=== PATIENT | female | born 1945 | race Caucasian/White ===

== ENCOUNTER 2018-12-20 09:19 | Day surgery (SDC) | payer MEDICARE, SELFPAY ==
[2018-12-20] VITALS (7 sets, daily range): BP systolic 118–147; BP diastolic 69–85; PULSE 70–89; RESP 14–19; TEMP 36.4–36.6; O2SAT 96–100; BMI 23.0
--- NOTE | 2018-12-20 | PATH_ITS ---
[facility] Accession Number: [id number] . 01 Material submitted: . hepatic flexure - POLYPS HEPATIC FLEXURE X2 . 02 Diagnosis: Hepatic Flexure, Polyps x2, Biopsies: Tubular adenoma in one of three fragments. V 12/21/2018 1336 Local . 02 Electronically signed: . Yolanda Bautista MD, Pathologist NPI- [id number] . 01 Gross description: . POLYPS HEPATIC FLEXURE X2: Received in formalin are 3 fragment(s) of lazo, soft tissue measuring 0.1 x 0.1 x 0.1 cm to 0.2 x 0.2 x 0.1 cm which is entirely submitted and submitted entirely in 1 cassette(s) /[facility] 12/20/2018 1912 Local . 02 Pathologist provided ICD-10: D12.3 . 02 CPT . 768809 Performed at: 01 [facility] [address] [facility] [place], [place], [place] [id number] MD Thomas Canela MD Phone: [phone] Performed at: 02 [facility] [address] [place], [place] [id number] MD Yolanda Bautista MD Phone: [phone]
[2018-12-20] MEDS: SODIUM CHLORIDE 0.9% 1,000 ML 42 ML IV (09:53)
--- NOTE | 2018-12-20 10:01 | PM.HP.1 ---
History of Present Illness History of Present Illness Date Patient Seen: 12/20/18 Time Patient Seen: 10:02 Chief complaint: 12415 Narrative: Screening for colorectal cancer Patient History Social History household members: friend(s) Family & Social History Social History: household members friend(s) Meds Home Medications and Allergies Allergies Allergy/AdvReac Type Severity Reaction Status Date / Time No Known Drug Allergies Allergy Verified 12/20/18 09:45 Exam Vital Signs (past 8 hours): - 12/20/18 09:34 Temperature 97.5 F L Pulse Rate 89 Respiratory Rate 16 Blood Pressure 147/85 H Pulse Oximetry 100 Oxygen Delivery Method Room Air Narrative Exam Narrative: Oropharynx free of lesions Chest clear to auscultation percussion Cardiac exam reveals no S3 or murmur Assessment & Plan Assessment & Plan narrative: Need for screening colonoscopy. Risks, benefits, alternatives have been explained.
--- NOTE | 2018-12-20 10:03 | PM.OP.ENDO ---
Operative Date/Time/Diagnoses Date of procedure: 12/20/18 Time of procedure: 10:03 Pre-op diagnosis: See indication and findings Procedure & Clinicians Study performed: Colonoscopy Same procedure as scheduled: Yes Indications: Screening. Last colonoscopy 10 years ago Surgeon: Aristeo Riggs Procedure Notes Procedure in detail: After informed consent was obtained the patient was placed in left lateral decubitus position. The video colonoscope was introduced the rectum and slowly advanced to the cecum. On slow withdrawal mucosa was carefully examined. Preparation was good. The scope was removed. The patient tolerated the procedure well. Blood loss none Complications none Sedation Total sedation time 31 minutes Versed 10 mg fentanyl 100 micro g IV titration Findings 1. Scattered pancolonic diverticulosis worse in the sigmoid 2. Two 3-4 mm polyps in the hepatic flexure Jumbo biopsy removed completely 3. Otherwise negative colonoscopy to cecum We will be in touch regarding pathology on the biopsies but if adenomatous she will need follow-up colonoscopy in 5 years. If not when she turns 81 ear 82
[2018-12-20] MEDS: ONDANSETRON 4 MG/2 ML INJ IV (10:10)
[2018-12-20] MEDS: MIDAZOLAM 5 MG/5 ML VIAL IV (10:55)
[2018-12-20] MEDS: fentaNYL 250 MCG/5 ML INJ IV (10:55)
--- NOTE | 2018-12-20 11:03 | SUR.OPER ---
EXTERNAL ABDOMINAL PRESSURE..TORTUOUS COLON
== END 2018-12-20 12:02 | disposition home or self-care (01) ==
PROVIDERS: Visit Provider Internal Medicine Gastroenterology
PROC: 0DJD8ZZ Inspection of Lower Intestinal Tract, Via Natural or Artificial Opening Endoscopic (ICD-10-PCS; CPT 45378; principal; 2018-12-20 10:30)
DX: Z12.11 Encounter for screening for malignant neoplasm of colon (principal); K57.30 Diverticulosis of large intestine without perforation or abscess without bleeding; D12.3 Benign neoplasm of transverse colon
CPT/HCPCS: 45380; J2250; J2405; J3010

== ENCOUNTER → 2019-01-05 15:13 | Outpatient (CLI) | payer MEDICARE, SELFPAY ==
--- NOTE | 2019-01-05 | DI.RAD.S_ITS ---
PROCEDURE: XR RIBS RT 2V INDICATIONS: Back pain, rib pain. TECHNIQUE: 2 views of the right ribs were acquired. COMPARISON: None. FINDINGS: Surgical changes and devices: None. Bones and chest wall: No fractures or dislocations. No suspicious bony lesions. Overlying soft tissues appear unremarkable. Lungs and pleura: The visualized lung appears clear. No pleural effusions or pneumothorax are visible. IMPRESSION: Source of pain is not seen, no rib fracture found. Dictated by: Regino Mantilla M.D. on 01/05/2019 at 17:16 Approved by: Regino Mantilla M.D. on 01/05/2019 at 17:16
--- NOTE | 2019-01-05 | DI.RAD.S_ITS ---
PROCEDURE: XR CERVICAL SPINE 2V OR 3V INDICATIONS: NECK PAIN TECHNIQUE: 3 view(s) of the cervical spine were acquired. COMPARISON: None. FINDINGS: Bones: No fractures or dislocations to the C7 level. The lateral masses of C1 appear intact on the odontoid view. No suspicious bony lesions. There is degenerative disc disease, moderate at C3-C4 and C4-C5, and mild at C5-C6 and C6-C7. Mild degenerative facet arthropathy scattered in cervical spine. Soft tissues: No prevertebral soft tissue swelling. IMPRESSION: Degenerative disc and facet disease in the cervical spine. Dictated by: He Darden M.D. on 01/05/2019 at 18:05 Approved by: He Darden M.D. on 01/05/2019 at 18:07
--- NOTE | 2019-01-05 | DI.RAD.S_ITS ---
PROCEDURE: XR THORACIC SPINE 2V INDICATIONS: NECK PAIN TECHNIQUE: 3 views of the thoracic spine were acquired. COMPARISON: None. FINDINGS: Bones: No fractures or dislocations. No suspicious bony lesions. There is mild/moderate degenerative disc disease at T6-T7, T7-T8, T8-T9, T9-T10, T10-T11 and T11-T12. 12 pairs of ribs are noted, and appear intact where visualized. Soft tissues: No paravertebral stripe thickening. IMPRESSION: [id number] degenerative disc disease. Dictated by: He Darden M.D. on 01/05/2019 at 18:07 Approved by: He Darden M.D. on 01/05/2019 at 18:09
== END ==
PROVIDERS: PCP Internal Medicine; Visit Provider Internal Medicine
DX: M54.9 Dorsalgia, unspecified (principal); R07.81 Pleurodynia; M50.31 Other cervical disc degeneration, high cervical region; M47.812 Spondylosis without myelopathy or radiculopathy, cervical region; M51.34 Other intervertebral disc degeneration, thoracic region
CPT/HCPCS: 71100; 72040; 72072

== ENCOUNTER → 2019-09-19 13:06 | Outpatient (CLI) | payer MEDICARE, SELFPAY | PROVIDERS: PCP Internal Medicine; Referring Provider Internal Medicine; Visit Provider Internal Medicine | DX: M85.851 Other specified disorders of bone density and structure, right thigh (principal); Z78.0 Asymptomatic menopausal state; M48.54XA Collapsed vertebra, not elsewhere classified, thoracic region, initial encounter for fracture; Z87.891 Personal history of nicotine dependence | CPT/HCPCS: 77080 ==

== ENCOUNTER → 2022-01-06 11:01 | Outpatient (CLI) | payer MEDICARE, SELFPAY ==
--- NOTE | 2022-01-06 | DI.RAD.S_ITS ---
PROCEDURE: FL SHOULDER INJECTION MR/CT LT INDICATIONS: Impingement syndrome of left shoulder COMPARISON: None. TECHNIQUE: The indications, alternatives, benefits, risks, and complications of the procedure were explained to the patient. Written informed consent was obtained and placed in the chart. The shoulder was examined fluoroscopically and a site for needle placement chosen for entry into the glenohumeral joint from an anterior approach. The skin was prepped and draped in a sterile fashion, and 1% lidocaine infiltrated from skin down to joint capsule. A spinal needle was inserted into the glenohumeral joint, and a small amount of iodinated contrast media injected to confirm intra-articular placement of the needle tip. This was followed by approximately 12 mL dilute solution of a gadolinium containing MR contrast agent. The needle was removed and a dressing was applied. The patient was given postprocedural instructions and sent to the MR suite for MR imaging. FINDINGS: A single fluoroscopic spot image demonstrates intra-articular location of injected iodinated contrast. IMPRESSION: Successful fluoroscopically guided administration of dilute Gadolinium solution into the shoulder joint for MR arthrogram. Dictated by: Jeremiah Woods M.D. on 01/06/2022 at 15:25 Approved by: Jeremiah Woods M.D. on 01/06/2022 at 15:25
--- NOTE | 2022-01-06 | DI.MRI.S_ITS ---
PROCEDURE: MR SHOULDER LT W CON INDICATIONS: Impingement syndrome of left shoulder TECHNIQUE: After the administration of 12 mL of dilute intra-articular Gadolinium contrast, oblique coronal T1 and T2 spin echo with fat saturation, oblique sagittal T1 spin echo with and without fat saturation, oblique sagittal T2 fast spin echo with fat saturation, axial T1 spin echo with fat saturation through the shoulder. COMPARISON: None. FINDINGS: Image quality: Excellent. Rotator cuff: Low-grade articular and bursal surface partial thickness tear involving distal supraspinatus at its insertion on the humeral head is seen extending to musculotendinous junction. Distal infraspinatus tendinosis is noted. Distal subscapularis tendon is intact. No full-thickness rotator cuff tendon rupture. Moderate supraspinatus muscle atrophy on sagittal images. Bones and bursae: No bone marrow contusions or fractures. Moderate acromioclavicular joint and glenohumeral joint osteoarthritic changes are seen with joint space narrowing, subchondral sclerosis and downward osteophyte formation. Capsule and soft tissues: Signal abnormality, contour irregularity and contrast extension in superior anterior labrum at 12 to 2 o'clock position is seen. The glenohumeral ligaments appear intact. The long head of the biceps tendon demonstrates normal location and morphology. The rotator interval appears normal, without fibrosis. The coracohumeral ligament is of normal thickness. No intra-articular bodies. IMPRESSION: 1. Moderate acromioclavicular joint and glenohumeral joint osteoarthritis. No fracture or dislocation. No gross intra-articular loose bodies. 2. Low-grade articular and bursal surface partial thickness tear involving distal supraspinatus extending to musculotendinous junction. No full-thickness rotator cuff tendon rupture. Moderate supraspinatus muscle atrophy. 3. Suggestion of superior anterior labral tear at 12 to 2 o'clock position. Dictated by: Jeremiah Woods M.D. on 01/06/2022 at 14:21 Approved by: Jeremiah Woods M.D. on 01/06/2022 at 14:28
== END ==
PROVIDERS: PCP Internal Medicine; Referring Provider Orthopaedic Surgery; Visit Provider Orthopaedic Surgery
DX: M75.42 Impingement syndrome of left shoulder (principal); M75.02 Adhesive capsulitis of left shoulder; M19.012 Primary osteoarthritis, left shoulder; M75.112 Incomplete rotator cuff tear or rupture of left shoulder, not specified as traumatic
CPT/HCPCS: 23350; 73222

== ENCOUNTER → 2022-03-04 14:19 | Outpatient (CLI) | payer MEDICARE, SELFPAY ==
[2022-03-04 15:18] LABS: Hemoglobin 14.5 g/dL (12.0-16.0); Mean Corpuscular HGB Conc 34.4 % (30-36); Mean Corpuscular Hemoglobin 34.4 PG (26-34); Mean Corpuscular Volume 99.8 fL (80-100); Platelet Count 227 X10^3/uL (150-400); Red Blood Cell Count 4.21 X10^6/uL (4.0-5.2); Red Cell Distribution Width 13.2 % (11.6-14.8); White Blood Cell Count 5.9 X10^3/uL (4.5-11.0)
[2022-03-04 15:48] LABS: Alanine Aminotransferase 19 IU/L (<35); Albumin 4.6 g/dL (3.5-5.0); Albumin Globulin Ratio 1.4 (1.0-2.8); Alkaline Phosphatase 67 U/L (38-126); Aspartate Aminotransferase 34 IU/L (14-36); BUN Creatinine Ratio 33.9 (6-22); Bilirubin Total 0.5 mg/dL (0.2-1.3); Blood Urea Nitrogen 19 mg/dL (7-17); Calcium 10.2 mg/dL (8.4-10.2); Carbon Dioxide 31 mmol/L (22-32); Chloride 96 mmol/L (98-107); Cholesterol 272 mg/dL (140-199); Estimated Glomerular Filt Rate > 60 mL/min (>60); Globulin 3.4 g/dL (1.7-4.1); Glucose 93 mg/dL (80-110); HEMOLYSIS < 15 (0-50); Sodium 137 mmol/L (137-145); Triglycerides 84 mg/dL (35-150)
[2022-03-04 16:07] LABS: HDL Cholesterol 178 mg/dL (40-60); LDL Cholesterol Calculated 77 mg/dL (<100)
[2022-03-04 16:19] LABS: TSH w/ Reflex to FT4 0.65 uIU/mL (0.47-4.68)
== END ==
PROVIDERS: PCP Internal Medicine; Referring Provider Internal Medicine; Visit Provider Internal Medicine
DX: I10 Essential (primary) hypertension (principal); E78.2 Mixed hyperlipidemia
CPT/HCPCS: 36415; 80053; 80061; 84443; 85027

== ENCOUNTER → 2022-08-09 15:16 | Outpatient (CLI) | payer MEDICARE, SELFPAY | PROVIDERS: PCP Internal Medicine; Visit Provider Nurse Practitioner Family | DX: S90.829A Blister (nonthermal), unspecified foot, initial encounter (principal); S90.821A Blister (nonthermal), right foot, initial encounter | CPT/HCPCS: 87070; 87075; 87205; 87252 ==

== ENCOUNTER → 2022-09-06 14:34 | Outpatient (CLI) | payer MEDICARE, SELFPAY ==
--- NOTE | 2022-09-06 14:48 | DI.DEXA.S_ITS ---
Bone Density Report Name: VALENTE CARRASCO I Age: 77 Sex: Female Ethnicity: White Date of : 1945 Indication: osteopenia; Referring Provider: CLARIBEL HOWARD Study: Bone densitometry was performed. Exam Date: September 06, 2022 Accession number: [id number] Bone Density: Region BMD T-score Z-score Classification AP Spine(L1-L4) 0.973 -0.7 1.8 Normal Femoral Neck (Left) 0.588 -2.3 -0.2 Osteopenia Total Hip (Left) 0.727 -1.8 0.1 Osteopenia Femoral Neck (Right) 0.585 -2.4 -0.2 Osteopenia Total Hip (Right) 0.668 -2.2 -0.4 Osteopenia Total Hip Mean 0.697 -2.0 -0.2 Osteopenia World Health Organization criteria for BMD impression classify patients as: Normal (T-score at or above -1.0), Osteopenia (T-score between -1.0 and -2.5), or Osteoporosis (T-score at or below -2.5). 10-year Fracture Risk(1): Major Osteoporotic Fracture 15% Hip Fracture 4.7% Reported Risk Factors: [place] (), Neck BMD=0.585, BMI=21.8 (1) FRAX(R) Version 3.08. Fracture probability calculated for an untreated patient. Fracture probability may be lower if the patient has received treatment. Previous Exams: -- Region Exam Age BMD T-score BMD Change BMD Change Date g/cm2 vs Baseline vs Previous -- AP Spine (L1-L4) 09/06/2022 77 0.973 -0.7 0.017 (1.8%)# 0.017 (1.8%)# 09/19/2019 74 0.956 -0.8 Total Hip(Left) 09/06/2022 77 0.727 -1.8 -0.033 (-4.3%)# -0.033 (-4.3%)# 09/19/2019 74 0.760 -1.5 Total Hip(Right) 09/06/2022 77 0.668 -2.2 -0.022 (-3.3%)# -0.022 (-3.3%)# 09/19/2019 74 0.690 -2.1 -- *Denotes significance at 95% confidence level, LSC for AP Spine = 0.022 g/cm2, LSC for Total Hip = 0.027 g/cm2 # Denotes dissimilar scan types or analysis methods Impression: The patient has low bone mass, based on the Right Femoral Neck T-score. The patient has an estimated ten-year risk of hip fracture of 4.7% and an estimated ten-year risk of major fracture of 15%, based on the WHO FRAX algorithm. No significant bone loss was observed. Discussion: BONE DENSITY IS LOW AT ONE OR MORE SKELETAL SITES. THE PATIENT'S BMD AND CLINICAL RISK FACTORS CONTRIBUTE TO THIS PATIENT'S INCREASED RISK OF FRACTURE. This patient's lowest T-score is low at one or more skeletal sites. It meets the World Health Organization's (WHO) criteria for ?low bone mass? (T-score between -1.0 and -2.5). The patient's 10-year risk of hip fracture as calculated by FRAX exceeds the threshold where pharmacological therapy is recommended by the National Osteoporosis Foundation (NOF). However, all treatment decisions require clinical judgment and consideration of individual patient factors, including patient preferences, comorbidities, previous drug use, risk factors not captured in the FRAX model (e.g., frailty, falls, vitamin D deficiency, increased bone turnover, interval significant decline in bone density) and possible under or overestimation of fracture risk by FRAX. The patient should follow a healthful lifestyle (good nutrition with adequate calcium and vitamin D, and appropriate weight-bearing exercise). Follow-Up: Consider a repeat BMD and Vertebral Fracture Assessment (VFA) exam in 2 years or sooner if medically necessary, to reassess this patient's status. Reported by: UGO UNDERWOOD M.D. on 09/06/2022 2:55:00 PM.
== END ==
PROVIDERS: PCP Internal Medicine; Referring Provider Internal Medicine; Visit Provider Internal Medicine
DX: Z78.0 Asymptomatic menopausal state (principal); M85.851 Other specified disorders of bone density and structure, right thigh
CPT/HCPCS: 77080

== ENCOUNTER → 2022-11-09 12:54 | Outpatient (CLI) | payer MEDICARE, SELFPAY ==
--- NOTE | 2022-11-09 | DI.MG.S_ITS ---
BILATERAL DIGITAL SCREENING MAMMOGRAM 3D/2D WITH CAD: 11/09/2022 CLINICAL: Routine screening. Comparison is made to exams dated: 11/04/2021 mammogram, 10/13/2020 mammogram, and 09/25/2019 mammogram - outside location. Both breasts are heterogeneously dense, which may obscure small masses (category c / 51-75% glandular tissue). Current study was also evaluated with a Computer Aided Detection (CAD) system. No significant masses, calcifications, or other findings are seen in either breast. There has been no significant interval change. IMPRESSION: NEGATIVE There is no mammographic evidence of malignancy. A 1 year screening mammogram is recommended. Based on the Tyrer Cuzick model (a risk assessment model) the patient's lifetime risk is 3.6% and her 10 year risk is 0.0%. According to the ACR, ACS, and NCCN guidelines, an annual breast MRI exam along with mammogram is recommended if the patient's lifetime risk is 20% or greater. This exam was interpreted at Station ID: [id number]. NOTE: For mammograms, a report in lay terms will be sent to the patient. Approximately 15% of breast malignancies will not be visualized mammographically. In the management of a palpable breast mass, a negative mammogram must not discourage biopsy of a clinically suspicious lesion. Electronically Signed By: Karl macedo/shannan:11/09/2022 14:37:33 letter sent: Normal Exam ACR BI-RADS Category 1: Negative 3341F
== END ==
PROVIDERS: PCP Internal Medicine; Referring Provider Internal Medicine; Visit Provider Internal Medicine
DX: Z12.31 Encounter for screening mammogram for malignant neoplasm of breast (principal)
CPT/HCPCS: 77063; 77067

== ENCOUNTER 2023-01-28 15:32 | Emergency (ER) | payer MEDICARE, SELFPAY ==
[2023-01-28 16:02] VITALS: BP 176/94; PULSE 98; RESP 18; TEMP 36.7; O2SAT 98; BMI 21.7
--- NOTE | 2023-01-28 16:06 | DI.US.S_ITS ---
PROCEDURE: US PERIPH VENOUS LOW EXTREM LT INDICATIONS: PROMINENT VEINS TECHNIQUE: Real-time imaging, as well as color and pulse Doppler interrogation, were performed of the lower extremity deep veins from the inguinal ligament to the popliteal fossa, with documentation of the visualized calf veins. COMPARISON: None. FINDINGS: The common femoral, femoral, popliteal, and the visualized calf veins are normally compressible, and free of intraluminal thrombus. Color and pulse Doppler demonstrate normal phasic intraluminal flow. There is normal augmentation response to distal compression maneuver. Saphenofemoral junction is patent. IMPRESSION: No left lower extremity DVT. Dictated by: Karl Tong M.D. on 01/28/2023 at 17:04 Approved by: Karl Tong M.D. on 01/28/2023 at 17:05
--- NOTE | 2023-01-28 18:07 | PC.NURSE ---
pt states that she has been feeling some pain in her left calf. she is very active and healthy and takes no medications. pt decided to come to the emergency dept for evaluation of a blood clot due to family hx. pt reports that she has been experiecing a 2/10 pain and has been able to bear weight on affected extremity. pt denies any other sx. no sob, no cp, no swelling noted on left calf. pt a&ox4.
--- NOTE | 2023-01-28 18:10 | ED.EXTPRO ---
HPI - Extremity Problem General Chief complaint: Extremity Problem,Nontraumatic Stated complaint: sent by md, possible blood clot Time Seen by Provider: 01/28/23 18:01 Source: patient Mode of arrival: Ambulatory History of Present Illness HPI Narrative: Patient is a 77-year-old female who started to have pain in her left heel that has now progressed up the back of her leg. This has been going on for the past several days. She contacted her primary doctor's office this morning who thought that she should come to the emergency department for evaluation of a blood clot. She was not actually evaluated by her primary doctor. She is not on blood thinners. She is no personal history of blood clot but apparently has a family history of clotting. She denies any trauma. No chest pain or shortness of breath. Related Data Previous Rx's Medication Instructions Recorded amlodipine 5 mg tablet 7.5 mg (1.5 x 5 mg) PO DAILY #135 03/04/22 tabs rosuvastatin 10 mg tablet 10 mg PO DAILY #90 tabs 03/04/22 triamterene 37.5 1 cap PO DAILY blood pressure #90 03/04/22 mg-hydrochlorothiazide 25 mg caps capsule Allergies Allergy/AdvReac Type Severity Reaction Status Date / Time No Known Drug Allergies Allergy Verified 01/28/23 16:02 Review of Systems Constitutional Constitutional: Reports system reviewed and no additional complaints, except as documented Musculoskeletal Musculoskeletal: Reports system reviewed and no additional complaints, except as documented Integumentary/Breasts Skin/Breast: Reports system reviewed and no additional complaints, except as documented Hematologic/Lymphatic On Anticoagulants: No Patient History Medical History Blistering rash BPPV (benign paroxysmal positional vertigo) Primary osteoarthritis involving multiple joints Mixed hyperlipidemia Essential hypertension Raynauds disease (~1970) Trigeminal neuropathy Osteopenia Fractures Mumps Measles Chicken pox Painful menstrual periods Endometriosis Hemorrhoid (~1963) Colon polyps (~2019) Surgical History History of surgery Anesthesia Family History Father History of heart attack Mother Pulmonary embolism Grandfather History of heart attack Social History household members: friend(s) Smoking Status: Former smoker Smoking Status: Former smoker Exam Initial Vital Signs Initial Vital Signs: Vital Signs Temperature 98.0 F 01/28/23 16:02 Pulse Rate 98 H 01/28/23 16:02 Respiratory Rate 18 01/28/23 16:02 Blood Pressure 176/94 H 01/28/23 16:02 Pulse Oximetry 98 01/28/23 16:02 Oxygen Delivery Method Room Air 01/28/23 16:02 Skin General: no rashes or lesions noted Neuro Sensory Exam: no sensory deficits noted Extrem General: normal to inspection, capillary refill normal and no joint enlargement Course Orders Ordered: ED Orders 01/28/23 16:06 US periph venous low extrem lt Stat Vital Signs Vital signs: Vital Signs - 8 hr 01/28/23 18:15 Temperature 98 F Pulse Rate 79 Respiratory Rate 20 Blood Pressure 184/90 H Pulse Oximetry 99 Oxygen Delivery Method Room Air MDM - Extremity (Nontraumatic) Imaging Data US - DVT: Radiologist's Impression: PROCEDURE: US PERIPH VENOUS LOW EXTREM LT INDICATIONS: PROMINENT VEINS TECHNIQUE: Real-time imaging, as well as color and pulse Doppler interrogation, were performed of the lower extremity deep veins from the inguinal ligament to the popliteal fossa, with documentation of the visualized calf veins. COMPARISON: None. FINDINGS: The common femoral, femoral, popliteal, and the visualized calf veins are normally compressible, and free of intraluminal thrombus. Color and pulse Doppler demonstrate normal phasic intraluminal flow. There is normal augmentation response to distal compression maneuver. Saphenofemoral junction is patent. IMPRESSION: No left lower extremity DVT. [facility] Narrative Medical decision making narrative: CT scan shows no signs of a DVT. She is no signs of infection. Neurovascularly intact. No trauma. No indication for x-rays. Patient was informed of the negative ultrasound result and she will contact your primary doctor for further evaluation. Discharge Plan Departure Patient Disposition: Home Clinical Impression: Left leg pain, Blistering eruption Activity Restrictions/Additional Instructions: The ultrasound today does not show any signs of a DVT. Recommend that you contact your primary doctor on Tuesday for follow-up. Return to the emergency department for new symptoms. Prescriptions: No Action rosuvastatin 10 mg tablet 10 mg PO DAILY Qty: 90 3RF amlodipine 5 mg tablet 7.5 mg PO DAILY Qty: 135 3RF triamterene-hydrochlorothiazid 37.5-25 mg capsule 1 cap PO DAILY Qty: 90 3RF Referrals: Ru Alvarado MD [Primary Care Provider] - Stand Alone Forms: Patient Portal/API
[2023-01-28 18:15] VITALS: BP 184/90; PULSE 79; RESP 20; TEMP 36.6; O2SAT 99
== END 2023-01-28 18:12 | disposition home or self-care (01) ==
PROVIDERS: Emergency Provider Emergency Medicine; PCP Internal Medicine
DX: M79.662 Pain in left lower leg (principal); T14.8XXA Other injury of unspecified body region, initial encounter; X58.XXXA Exposure to other specified factors, initial encounter
CPT/HCPCS: 93971; 99281; 99282

== ENCOUNTER → 2023-03-07 14:46 | Outpatient (CLI) | payer MEDICARE, SELFPAY ==
[2023-03-07 15:42] LABS: Aspartate Aminotransferase 44 IU/L (14-36); Blood Urea Nitrogen 18 mg/dL (7-17); Calcium 9.8 mg/dL (8.4-10.2); Carbon Dioxide 30 mmol/L (22-32); Chloride 99 mmol/L (98-107); Cholesterol 253 mg/dL (140-199); Estimated Glomerular Filt Rate > 60 mL/min (>60); Glucose 98 mg/dL (80-110); HEMOLYSIS < 15 (0-50); Potassium 3.5 mmol/L (3.4-5.1); Sodium 136 mmol/L (137-145); Triglycerides 117 mg/dL (35-150)
[2023-03-07 15:58] LABS: HDL Cholesterol 150 mg/dL (40-60); LDL Cholesterol Calculated 80 mg/dL (<100)
== END ==
PROVIDERS: PCP Internal Medicine; Referring Provider Internal Medicine; Visit Provider Internal Medicine
DX: E78.2 Mixed hyperlipidemia (principal); I10 Essential (primary) hypertension
CPT/HCPCS: 36415; 80048; 80061; 84450

== ENCOUNTER → 2023-11-14 14:21 | Outpatient (CLI) | payer MEDICARE, SELFPAY ==
--- NOTE | 2023-11-14 14:22 | DI.MG.S_ITS ---
BILATERAL DIGITAL SCREENING MAMMOGRAM 3D/2D WITH CAD: 11/14/2023 CLINICAL: Routine screening. Comparison is made to exams dated: 11/09/2022 mammogram - [facility], 11/04/2021 mammogram, and 10/13/2020 mammogram - outside location. Both breasts are extremely dense, which lowers the sensitivity of mammography (category d />75% glandular tissue). Current study was also evaluated with a Computer Aided Detection (CAD) system. No significant masses, calcifications, or other findings are seen in either breast. There has been no significant interval change. IMPRESSION: NEGATIVE There is no mammographic evidence of malignancy. A 1 year screening mammogram is recommended. Based on the Tyrer Cuzick model (a risk assessment model) the patient's lifetime risk is 4.9% and her 10 year risk is 0.0%. According to the ACR, ACS, and NCCN guidelines, an annual breast MRI exam along with mammogram is recommended if the patient's lifetime risk is 20% or greater. This exam was interpreted at Station ID: [id number]. NOTE: For mammograms, a report in lay terms will be sent to the patient. Approximately 15% of breast malignancies will not be visualized mammographically. In the management of a palpable breast mass, a negative mammogram must not discourage biopsy of a clinically suspicious lesion. Electronically Signed By: Shadi arauz/shannan:11/14/2023 16:05:24 letter sent: Normal Exam ACR BI-RADS Category 1: Negative [id number]
== END ==
LOC: MAMMO 14:22
PROVIDERS: PCP Internal Medicine; Referring Provider Internal Medicine; Visit Provider Internal Medicine
DX: Z12.31 Encounter for screening mammogram for malignant neoplasm of breast (principal)
CPT/HCPCS: 77063; 77067

== ENCOUNTER → 2024-02-14 14:57 | Outpatient (CLI) | payer MEDICARE, SELFPAY ==
--- NOTE | 2024-02-14 14:58 | DI.MRI.S_ITS ---
PROCEDURE: MR LUMBAR SPINE WO CON INDICATIONS: Spondylolisthesis TECHNIQUE: Noncontrast sagittal T1 spin echo and T2 fast echo, sagittal STIR, and T2 fast spin echo through the lumbar spine. In cases with scoliosis, additional coronal T2 fast spin echo may be performed. COMPARISON: None. FINDINGS: Image quality: Excellent Mild retrolisthesis of L2 on L3. Grade 1 anterolisthesis of L5 on S1, with bilateral pars defect. Vertebral body height of the lumbar spine are well maintained. Multiple small Schmorl's node of the lumbar spine. Marrow signal of the lumbar spine is unremarkable. Multilevel disc bulge and disc desiccation The conus terminates at the level of T12-L1, and is unremarkable. Right neural foraminal stenosis: Moderate at L1-2, and L2-3, mild at L3-4, moderate at L4-5 and L5-S1. Left neural foraminal stenosis: Mild at L2-3, moderate at L3-4, mild at L4-5, and moderate at L5-S1. Axial images: T12-L1: Mild disc bulge. No central canal stenosis. L1-2: Disc bulge. Mild bilateral facet arthropathy. No central canal stenosis. L2-3: Disc bulge. Mild bilateral facet arthropathy. Mild central canal stenosis. L3-4: Mild bilateral facet arthropathy. Disc bulge. No central canal stenosis. L4-5: Disc bulge. Mild bilateral facet arthropathy. Patient is likely status post right laminotomy. No central canal stenosis. L5-S1: Mild bilateral facet arthropathy. Posterior disc uncovering. No central canal stenosis. Visualized sacrum is intact. No abdominal aortic aneurysm. IMPRESSION: 1. Multilevel degenerative changes of the lumbar spine, most pronounced at L5-S1, where there is moderate bilateral neural foraminal stenosis. 2. Mild central canal stenosis at L2-3. Dictated by: Katerin Everett M.D. on 02/14/2024 at 17:30 Approved by: Katerin Everett M.D. on 02/14/2024 at 17:39
== END ==
PROVIDERS: PCP Internal Medicine; Referring Provider Physical Medicine & Rehabilitation; Visit Provider Physical Medicine & Rehabilitation
DX: M43.16 Spondylolisthesis, lumbar region (principal); M47.816 Spondylosis without myelopathy or radiculopathy, lumbar region; M47.817 Spondylosis without myelopathy or radiculopathy, lumbosacral region; M51.369 Other intervertebral disc degeneration, lumbar region without mention of lumbar back pain or lower extremity pain; M48.061 Spinal stenosis, lumbar region without neurogenic claudication; M48.07 Spinal stenosis, lumbosacral region
CPT/HCPCS: 72148

== ENCOUNTER → 2024-03-08 11:19 | Outpatient (CLI) | payer MEDICARE, SELFPAY ==
[2024-03-08 12:58] LABS: Aspartate Aminotransferase 51 IU/L (14-36); BUN Creatinine Ratio 31.5 (6-22); Blood Urea Nitrogen 23 mg/dL (7-17); Calcium 9.9 mg/dL (8.4-10.2); Carbon Dioxide 29 mmol/L (22-32); Chloride 98 mmol/L (98-107); Cholesterol 282 mg/dL (140-199); Estimated Glomerular Filt Rate > 60 mL/min (>60); Glucose 96 mg/dL (80-110); HEMOLYSIS < 15 (0-50); Potassium 3.6 mmol/L (3.4-5.1); Sodium 136 mmol/L (137-145); Triglycerides 59 mg/dL (35-150)
[2024-03-08 13:16] LABS: HDL Cholesterol 212 mg/dL (40-60); LDL Cholesterol Calculated 58 mg/dL (<100)
== END ==
PROVIDERS: PCP Internal Medicine; Referring Provider Internal Medicine; Visit Provider Internal Medicine
DX: I10 Essential (primary) hypertension (principal); E78.2 Mixed hyperlipidemia
CPT/HCPCS: 36415; 80048; 80061; 84450

== ENCOUNTER 2024-05-23 11:11 | Day surgery (SDC) | payer MEDICARE, SELFPAY ==
--- NOTE | 2024-05-23 | PATH_ITS ---
[facility] Accession Number: [id number] No. of containers..01 Tissue . 01 Material submitted: . colon - COLON POLYP @ 20 . 01 Diagnosis: COLON POLYP AT 20 CM: Colonic mucosa with focal mucosal hyperplasia. Negative for dysplasia or malignancy. [facility] 05/25/2024 1044 Local . 01 Electronically signed: . Christopher Castro MD, PhD, Pathologist NPI- [id number] . 01 Gross description: . Received in formalin with two patient identifiers and 1. Colon polyp at 20, are two lazo soft tissue fragments, 0.3-0.4 cm in greatest dimension, submitted in A1. ([id number]) /MRV 05/24/2024 1823 Local . 01 Pathologist provided ICD-10: K63.5 . 01 CPT . 449557 Specimen Comment: A courtesy copy of this report has been sent to [phone] Performed at: 01 [facility] [address], [place], [place] [id number] MD Thomas Canela MD Phone: [phone]
[2024-05-23 11:37] VITALS: BP 143/76; PULSE 100; RESP 18; TEMP 36.7; O2SAT 100
[2024-05-23] MEDS: LACTATED RINGERS 1,000 ML 42 ML IV (11:43)
--- NOTE | 2024-05-23 12:37 | PM.PREOP ---
Pre-operative Note Interval Note History & Physical reviewed/Exam performed by Physician: Yes Changes to H&P: No ASA Class (for procedural sedation): II
--- NOTE | 2024-05-23 12:38 | PM.OP.COLON ---
Operative Date/Time/Diagnoses Date of procedure: 05/23/24 Pre-op diagnosis: See indication and findings Procedure & Clinicians Study performed: Colonoscopy Same procedure as scheduled: Yes Indications: History of colon polyps Surgeon: Aristeo Riggs Procedure Notes Procedure in detail: After informed consent was obtained the patient was placed in left lateral decubitus position. The video colonoscope was introduced the rectum slowly advanced but we were unable to reach the cecum due to excessive tortuosity. Full extent of the colonoscopy none known but was probably hepatic flexure.. Preparation was good. On slow withdrawal mucosa was carefully examined. The scope was removed. The patient tolerated procedure well. Blood loss none Complications none Sedation mac Findings One. Three 4-5 mm polyps at 40 cm all Jumbo biopsy removed completely 2. Otherwise negative colonoscopy to approximately the hepatic flexure When we get back her biopsy results we will discuss appropriate follow-up which will probably not include colonoscopy
[2024-05-23 13:10] VITALS: BP 131/72; PULSE 75; RESP 18; TEMP 36.2; O2SAT 98
[2024-05-23 13:26] VITALS: BP 145/77; PULSE 76; RESP 18; TEMP 36.3; O2SAT 98
--- NOTE | 2024-06-13 08:24 | PM.HP.IH.1 ---
History of Present Illness History of Present Illness Date Patient Seen: 06/13/24 Chief complaint: [facility] Medical History (Updated 03/08/24 @ 11:08 by Ru Alvarado MD) Chronic low back pain History of colonic polyps BPPV (benign paroxysmal positional vertigo) Primary osteoarthritis involving multiple joints Mixed hyperlipidemia Essential hypertension Raynauds disease (~1969) Trigeminal neuropathy Osteopenia Fractures Mumps Measles Chicken pox Painful menstrual periods Endometriosis Hemorrhoid (~1962) Surgical History History of surgery Anesthesia Family History Father History of heart attack Mother Pulmonary embolism Grandfather History of heart attack Social History details: Lives alone, no children, retired [employer] household members: friend(s) Smoking Status: Former smoker alcohol intake: current Meds Home Medications and Allergies Home Medications Medication Instructions Recorded Confirmed Type amlodipine 5 mg tablet 7.5 mg (1.5 x 5 mg) PO DAILY #135 03/08/24 05/23/24 Rx tabs rosuvastatin 10 mg tablet 10 mg PO DAILY #90 tabs 03/08/24 05/23/24 Rx triamterene 37.5 1 cap PO DAILY blood pressure #90 03/08/24 05/23/24 Rx mg-hydrochlorothiazide 25 mg caps capsule acetaminophen 325 mg tablet 650 mg PO PRN PRN Pain, Mild 05/23/24 05/23/24 History (Tylenol) Allergies Allergy/AdvReac Type Severity Reaction Status Date / Time No Known Drug Allergies Allergy Verified 05/23/24 11:29 Exam Vital Signs (past 8 hours): Oxygen Delivery Method Room Air Narrative Exam Narrative: Oropharynx free of lesions Chest clear to auscultation percussion Cardiac exam reveals no S3 or murmur Assessment & Plan Assessment & Plan narrative: Need for colon cancer screening. Risks, benefits, alternatives have been explained. Time-Based Coding :: [TOTAL MINUTES] spent with patient and on the chart (including review of chart, obtaining history, exam, reviewing outside data, placing orders, documenting exam and treatment plan, and counseling patient) on [DATE]. [employer] Sales Representative Document charge(s): No
== END 2024-05-23 13:46 | disposition home or self-care (01) ==
PROVIDERS: PCP Internal Medicine; Referring Provider Internal Medicine Gastroenterology; Visit Provider Internal Medicine Gastroenterology
PROC: 0DJD8ZZ Inspection of Lower Intestinal Tract, Via Natural or Artificial Opening Endoscopic (ICD-10-PCS; CPT 45378; principal; 2024-05-23 12:30)
DX: Z12.11 Encounter for screening for malignant neoplasm of colon (principal); Z86.0100 Personal history of colon polyps, unspecified; K63.5 Polyp of colon
CPT/HCPCS: 45380; J2405; J2704

== ENCOUNTER → 2024-11-28 09:05 | Outpatient (CLI) | payer MEDICARE, SELFPAY ==
--- NOTE | 2024-11-28 09:07 | DI.MG.S_ITS ---
MM diagnostic mammo unilat LT: 11/28/2024. BI-RADS: 1 CLINICAL: 79-year old female for left diagnostic mammogram that is a recall from screening on 11/15/2024. Tyrer-Cuzick lifetime risk of 3.0%. No personal or first-degree family history of breast cancer. The patient had a prior right breast biopsy. PRIOR EXAMS Mammogram(s): 11/15/2024, 11/14/2023, 11/09/2022. MAMMOGRAPHY TECHNIQUE: 2D and 3D (tomosynthesis) digital mammographic views obtained, with additional images as needed for full coverage. Current study was also evaluated with a Computer Aided Detection (CAD) system. DENSITY Left: C. The breast is heterogeneously dense, which may obscure small masses. MAMMOGRAPHY FINDINGS Left: MLO only, Upper: The asymmetry seen on recent screening mammogram is less conspicuous with additional imaging and is consistent with benign fibroglandular tissue. No suspicious mass, asymmetry, microcalcification, or other abnormality seen. IMPRESSION: Left * No evidence of malignancy. RECOMMENDATIONS Bilateral * Annual screening mammography. COMMENTS: Findings and recommendations were conveyed to the patient during today's evaluation. OVERALL ASSESSMENT CATEGORY BI-RADS-1: Negative. The [employer] recommends annual screening mammography beginning at age 40 for women with average risk of breast cancer. ELECTRONICALLY SIGNED: Maria R Milligan M.D. on 11/28/2024 at 10:07:02 AM PT Interpreting Station ID: [id number]
== END ==
LOC: MAMMO 09:06
PROVIDERS: PCP Internal Medicine; Referring Provider Internal Medicine; Visit Provider Internal Medicine
DX: R92.8 Other abnormal and inconclusive findings on diagnostic imaging of breast (principal); R92.332 Mammographic heterogeneous density, left breast
CPT/HCPCS: 77065; G0279

== ENCOUNTER → 2025-03-15 13:10 | Outpatient (CLI) | payer MEDICARE, SELFPAY ==
[2025-03-15 14:05] LABS: Hematocrit 42.5 % (36-46); Hemoglobin 14.5 g/dL (12.0-16.0); Mean Corpuscular HGB Conc 34.1 % (30-36); Mean Corpuscular Hemoglobin 33.3 PG (26-34); Mean Corpuscular Volume 97.6 fL (80-100); Platelet Count 228 X10^3/uL (150-400)
[2025-03-15 14:46] LABS: Blood Urea Nitrogen 17 mg/dL (7-17); Calcium 9.9 mg/dL (8.4-10.2); Carbon Dioxide 28 mmol/L (22-32); Chloride 98 mmol/L (98-107); Cholesterol 253 mg/dL (140-199); Estimated Glomerular Filt Rate > 60 mL/min (>60); Glucose 96 mg/dL (70-99); HEMOLYSIS < 15 (0-50); Potassium 3.5 mmol/L (3.4-5.1); Sodium 136 mmol/L (137-145); Triglycerides 98 mg/dL (35-150)
[2025-03-15 14:54] LABS: HDL Cholesterol 191 mg/dL (40-60)
[2025-03-15 15:15] LABS: TSH w/ Reflex to FT4 0.54 uIU/mL (0.47-4.68)
[2025-03-15 15:30] LABS: Vitamin D 25 Hydroxy (D3) 43.6 ng/mL (30.0-100.0)
== END ==
PROVIDERS: PCP Internal Medicine; Referring Provider Internal Medicine; Visit Provider Internal Medicine
DX: I10 Essential (primary) hypertension (principal); E78.2 Mixed hyperlipidemia; E55.9 Vitamin D deficiency, unspecified; R03.0 Elevated blood-pressure reading, without diagnosis of hypertension
CPT/HCPCS: 36415; 80048; 80061; 82043; 82306; 82570; 84443; 84450; 85027

== ENCOUNTER → 2025-03-25 14:34 | Outpatient (CLI) | payer MEDICARE, SELFPAY ==
--- NOTE | 2025-03-25 14:35 | DI.RAD.S_ITS ---
PROCEDURE: XR DEXA AXIAL SKELETON INDICATIONS: osteopenia COMPARISON: [facility], , XR DEXA AXIAL SKELETON, 09/06/2022, 14:48. [facility], CR, XR DEXA AXIAL SKELETON, 09/19/2019, 13:31. FINDINGS: Lumbar Spine: Bone mineral density 0.967 g/cm2, T score 0.7, unchanged from prior. Left Femoral Neck: Bone mineral density 0.580 g/cm2, T score -2.4. Left Hip: Bone mineral density 0.727 g/cm2, T score -1.8, unchanged from prior. Fracture Risk Calculation (when applicable): 10-year fracture risk of a major osteoporotic fracture 16 percent and of a hip fracture 5.3 percent. (T score greater or equal to -1.0 to: NORMAL) (T score from -1.1 to -2.4: OSTEOPENIA) (T score less than or equal to -2.5: OSTEOPOROSIS) IMPRESSION: Osteopenia Follow-up guidelines as follows: Osteoporosis: Consider a repeat DEXA and Vertebral Fracture Assessment (VFA) exam in 2 years or sooner if medically necessary, to reassess this patient's status. Osteopenia: Consider a repeat DEXA in 2-3 years to reassess this patient's status, or if there is a new clinical indication. Normal: Consider a repeat DEXA in 5 years or sooner, or if there is a new clinical indication. All treatment decisions require clinical judgment and consideration of individual patient factors, including patient preferences, comorbidities, previous drug use, risk factors not captured in the FRAX model (e.g., frailty, falls, vitamin D deficiency, increased bone turnover, interval significant decline in bone density ) and possible under- or over-estimation of fracture risk by FRAX. In addition, the NOF Guide recommends that FDA-approved medical therapies be considered in postmenopausal women and men age >= 50 years with a: * Hip or vertebral (clinical or morphometric) fracture * T-score of <=-2.5 at the spine or hip * Ten-year fracture probability by FRAX of >= 3% for hip fracture or >=20% for major osteoporotic fracture. Dictated by: Rafael Parker M.D. on 03/25/2025 at 16:52 Approved by: Rafael Parker M.D. on 03/25/2025 at 16:53
== END ==
LOC: RAD 14:35
PROVIDERS: PCP Internal Medicine; Referring Provider Internal Medicine; Visit Provider Internal Medicine
DX: M85.89 Other specified disorders of bone density and structure, multiple sites (principal)
CPT/HCPCS: 77080